=== PATIENT | male | born 1990 | race Caucasian/White ===

== ENCOUNTER → 2020-03-02 | Outpatient (CLI) | payer SELFPAY ==
[2020-03-02 12:00] VITALS: BP 124/76
--- NOTE | 2020-03-02 12:00 | ER RDC ASSESSMENT REPORT ---
Intake - In the Last 14 days Have you traveled outside [place]?: No Have you been in close contact with someone CONFIRMED: No Worked in Healthcare?: No - Symptoms Subjective Fever([place] feverish): Yes Chills: Yes Muscule Aches: Yes Runny Nose: Yes Sore Throat: Yes Cough (New or worsening chronic cough): Yes Shortness of breath: Yes Nausea or Vomiting: Yes Headache: Yes Abdominal Pain: Yes Diarrhea(3 or more loose stools in last 24 hours): Yes - Do you have any of the following Chronic lung disease: Asthma or emphysema or COPD: No Cystic Fibrosis: No Diabetes: No High Blood Pressure: No Cardiovascular Disease: No Chronic Kidney Disease: No Chronic Liver Disease: No Chronic blood disorder like Sickle Cell Disease: No Weak immune system due to disease or medication: No Neurologic condition that limits movement: No Developmental delay - Moderate to Severe: No Recent (within past 2 weeks) or current : No Morbid Obesity (>100 pounds over ideal weight): No - Objective Temperature: 97.6 F - Oral Pulse Rate: 77 Respiratory Rate: 18 Blood Pressure: 124/76 O2 Sat by Pulse Oximetry: 97 Objective: Patient is a well-appearing 29-year-old male who presents today for COVID-19 screening. Disposition: Home; Selfcare General - General Stated Complaint: Upper respiratory symptoms since yesterday Mode of Arrival: Ambulatory Information source: Patient Notes: The patient was evaluated during the global COVID-19 pandemic. That diagnosis was suspected/considered upon initial presentation. Their evaluation, treatment, and testing was consistent with current guidelines for patients who present with complaints or symptoms that may be related to COVID-19. - HPI Onset: Yesterday Onset/Duration: Constant Quality of pain: Achy Severity: Mild Pain Level: 2 Context: Generalized body aches. Associated symptoms: Body/muscle aches, Chills, Nonproductive cough, Diarrhea, Fever, Headache, Nausea, Vomiting, Rhinnorhea, Shortness of breath, Sore throat Exacerbated by: Denies Relieved by: Denies Similar symptoms previously: No Recently seen / treated by doctor: No - Related Data Allergies/Adverse Reactions: No Known Allergies Allergy (Unverified 07/22/17 21:06) Past Medical History - Social History Smoking Status: Current Every Day Smoker Cigarette use (# per day): Yes - Quit smoking 3 yrs ago, current daily Vape user Chew tobacco use (# tins/day): No Smoking Education Provided: Yes Frequency of alcohol use: Occasional Drug Abuse: None Occupation: [employer] worker Lives with: Family Family History: Reviewed & Not Pertinent Patient has suicidal ideation: No Patient has homicidal ideation: No Renal/ Medical History: Denies: Hx Peritoneal Dialysis Skin Medical History: Reports Hx Cellulitis - Pilonidal cyst Past Surgical History: Reports: Other - Pilonidal cyst Physical Exam - General General appearance: Appears well In distress: None Notes: PHYSICAL EXAMINATION: GENERAL: Well-appearing and in no acute distress. HEAD: Atraumatic, normocephalic. EYES: sclera anicteric, conjunctiva are normal. ENT: nares patent. Moist mucous membranes. NECK: Normal range of motion, supple without lymphadenopathy. LUNGS: CTAB and equal. No wheezes rales or rhonchi. HEART: Regular rate and rhythm without murmurs. ABDOMEN: Soft, nontender, normal bowel sounds, no guarding. EXTREMITIES: Normal range of motion, no pitting edema. No cyanosis. BACK: No midline or CVA tenderness. NEUROLOGICAL: Cranial nerves grossly intact. Normal speech. PSYCH: Normal mood, normal affect. SKIN: Warm, Dry, normal color and turgor, no obvious lesions or rash noted. Diagnostic Results Laboratory Results: Patient notified of NEGATIVE results on Rapid Flu (A & B) and Rapid Strep. Advised Throat Culture and COVID testing are PENDING, and they will be notified of any POSITIVE culture results at a later date/time. Patient has been made aware that is currently taking 3-5 days for COVID test results, and that [facility] [place], [place] will call them with their COVID-19 test results, whether they are NEGATIVE or POSITIVE. Patient Education/Counseling Counseling/Education: Patient presents with upper respiratory symptoms worrisome for possible COVID- 19. Patient does not have symptoms worrisome as an emergency such as difficulty breathing, shortness of breath, chest pain, pressure, confusion or cyanosis. Patient appears suitable for discharge. Patient's vital signs are stable and patient is nontoxic in appearance. Good return precautions have been discussed with patient, patient verbalized understanding and is agreeable with discharge plan of care at this time. Patient provided COVID-19 discharge instructions to include: As a person under investigation for COVID-19, the [facility], division of public health advises you to adhere to the following guidance until your test results are reported to you. If your test result is positive, you will receive additional information from your provider and your local health department at that time. Remain at home until you are cleared by the health provider or public health authorities. Keep a log of visitors to your home, notify any visitors to your home of your isolation status. If you plan to move to a new address or leave the county, notify the local health department in your County. Call your doctor or seek care if you have an urgent medical need. Before seeking medical care, call ahead to get instructions from the provider before arriving at the medical office clinic or hospital. Notify them that you are being tested for the virus that causes COVID-19 so that arrangements can be made, as necessary, to prevent transmission to others in the healthcare setting. Next, notify the local health department in your county. If a medical emergency arises and you need to call 911, inform dispatch and the first responders that you are being tested for the virus that causes COVID-19. Next, notify the local health department in your county. Patient provided education on smoking cessation and the harmful effects of smoking, vaping, and/or tobacco use especially in the presence of Co-morbid conditions such as Hypertension, Diabetes, and/or other chronic illnesses. Patient verbalized understanding of smoking cessation education, and the increased health benefits of quitting. Guidance for worsening S/SX: For worsening symptoms, patient has been advised to contact their Primary Care Provider, or go to the nearest Emergency Department. RDC Discharge - Discharge Clinical Impression: COVID-19 Screening URI (upper respiratory infection) Qualifiers: URI type: unspecified URI Qualified Code(s): J06.9 - Acute upper respiratory infection, unspecified Condition: Stable Disposition: Home; Selfcare
[2020-03-02 12:37] LABS: A TYPE INFLUENZA AG NEGATIVE (NEGATIVE); B INFLUENZA AG NEGATIVE (NEGATIVE)
== END ==
LOC: RDC 09:52
PROVIDERS: ATTEND Nurse Practitioner Family
DX: Z20.828 Contact with and (suspected) exposure to other viral communicable diseases (principal)
CPT/HCPCS: 36415; 87070; 87880; 87635; 87804; C9803

== ENCOUNTER 2020-03-04 10:20 | Emergency (ER) | payer SELFPAY ==
[2020-03-04] MEDS ORDERED: BUPIVACAINE HCL 0.25 % INJ/PF (2.5 MG/1 ML) 30 ML VIAL INJ ONE (10:29)
--- NOTE | 2020-03-04 10:33 | ER Document Report ---
HPI - HPI Patient complains to provider of: Nail to right great toenail Time Seen by Provider: 03/04/20 10:26 Pain Level: 5 Context: 29-year-old male with no previous medical problems presents the emergency room with a carpet nail in his right great toenail. Patient states he was wearing flip-flops when he turned and a loose nail went underneath his right great toenail. Patient states attempted to remove it at home without success. Ryan morales is up-to-date. Took naproxen prior to arrival without relief. No bleeding. Associated Symptoms: None Exacerbated by: Movement Relieved by: Denies Similar symptoms previously: No Recently seen / treated by doctor: No - ROS Systems Reviewed and Negative: Yes All other systems reviewed and negative - NEURO Neurology: DENIES: Weakness - REPRODUCTIVE Reproductive: DENIES: : - MUSCULOSKELETAL Musculoskeletal: REPORTS: Extremity pain - DERM Skin Color: Normal Notes: Nail to right great toenail Past Medical History - General Information source: Patient - Social History Smoking Status: Current Every Day Smoker Frequency of alcohol use: Occasional Drug Abuse: None Family History: Reviewed & Not Pertinent Renal/ Medical History: Denies: Hx Peritoneal Dialysis Skin Medical History: Reports Hx Cellulitis - Pilonidal cyst Past Surgical History: Reports: Other - Pilonidal cyst Vertical Provider Document - CONSTITUTIONAL Agree With Documented VS: Yes Exam Limitations: No Limitations General Appearance: Moderate Distress - INFECTION CONTROL TRAVEL OUTSIDE OF THE [place] IN LAST 30 DAYS: No - HEENT HEENT: Atraumatic, Normocephalic - NECK Neck: Normal Inspection, Supple - RESPIRATORY Respiratory: Breath Sounds Normal, No Respiratory Distress, Chest Non-Tender. negative: Rales, Rhonchi, Wheezing - BACK Back: Normal Inspection - MUSCULOSKELETAL/EXTREMETIES Musculoskeletal/Extremeties: Tender - Tenderness to the tip of the right great toenail. Painful range of motion. Painful to touch. - NEURO Level of Consciousness: Awake, Alert, Appropriate Motor/Sensory: No Motor Deficit, No Sensory Deficit Notes: Positive right pedal pulse. Capillary refill less than 3 seconds. - DERM Integumentary: Warm, Dry Notes: Small nail noted to the right great toe to the lateral aspect underneath the right great toenail. Course - Re-evaluation Re-evalutation: 03/04/20 11:10 Digital block with 0.25% bupivacaine 3 mL is used able to remove nail with Emi forceps. Subungual hematoma noted. Removed majority of bleeding with pressure. Dressing applied. Patient was counseled on warm soaks 20 minutes 3 times a day. Medications as prescribed. Follow-up primary care physician for recheck in 2 to 3 days. Patient was given strict return to the emergency room guidelines. Return for any new or worsening symptoms. All questions were answered. Patient verbalized understanding and agrees with plan of care. 03/04/20 13:48 - Vital Signs Vital signs: Temp Pulse Resp BP Pulse Ox 98.5 F 99 18 154/104 H 98 03/04/20 10:24 03/04/20 10:24 03/04/20 10:24 03/04/20 10:24 03/04/20 10:24 Procedures - Additional Procedures foreign body removal Time performed: 11:10 Notes: 03/04/20 10:55 Three-point digital block with 0.25% of Marcaine, 4 mL's used. 03/04/20 11:10 Able to remove nail with Emi forceps. Small subungual hematoma noted. Mild b leeding noted. Able to drain hematoma with pressure after removal of nail. Dressing applied. 03/04/20 13:49 Discharge - Discharge Clinical Impression: Nailbed injury Superficial foreign body of right great toe Qualifiers: Encounter type: initial encounter Qualified Code(s): S90.451A - Superficial foreign body, right great toe, initial encounter Condition: Stable Disposition: HOME, SELF-CARE Instructions: Removal of Subcutaneous Foreign Object ([facility]), Subungual Hematoma ([facility]) Additional Instructions: Warm soaks 20 minutes 3 times a day. Medications as prescribed. Recheck primary care physician 2 to 3 days as needed. Return for any new or worsening symptoms. Prescriptions: Cephalexin Monohydrate [Keflex 500 mg Capsule] 500 mg PO QID #40 capsule Hydrocodone/Acetaminophen [[place] 5-325 mg Tablet] 1 tab PO Q6H PRN #6 tablet PRN Reason: Referrals: MARLY ARMAS PA-C [Primary Care Provider] - Follow up as needed
[2020-03-04 11:27] VITALS: BP 136/77
== END 2020-03-04 11:28 | disposition home or self-care (01) ==
LOC: ER 10:20
PROC: 3E0T3BZ Introduction of Anesthetic Agent into Peripheral Nerves and Plexi, Percutaneous Approach (ICD-10-PCS; principal; 2020-03-04)
DX: S90.451A Superficial foreign body, right great toe, initial encounter (principal); W45.0XXA Nail entering through skin, initial encounter; F17.200 Nicotine dependence, unspecified, uncomplicated
CPT/HCPCS: 99283